=== PATIENT | male | born 1985 | race Caucasian/White ===

== ENCOUNTER 2017-05-18 13:34 | Inpatient (IN) | payer MEDICAID, OTHER ==
[~2017-05-18] VITALS: Ht 167.6 cm; Wt 73.5 kg
[2017-05-18 14:36] VITALS: BP 142/92; PULSE 109; RESP 16; TEMP 98.1; O2SAT 100
[2017-05-18 14:38] VITALS: BP 142/92; PULSE 109; RESP 16; O2SAT 100
--- NOTE | 2017-05-18 14:45 | PD ---
HPI Chief Complaint: Psychiatric Symptoms Time Seen by Provider: 14:41 Travel History International Travel<30 days: No Contact w/Intl Traveler<30days: No Traveled to known affect area: No History of Present Illness HPI 32-year-old male presents to the ED under Nogueira act for psychiatric evaluation. According to the Nogueira act paper work the patient was attempting to stab himself with a marker. The patient also told the deputy that he wanted to be shocked by the police to end his life. Per the Nogueira act the patient stopped taking antidepressants. On presentation the patient denies SI or HI. He acknowledges that he did make these remarks but states that this was because he was stressed due to family interactions. He endorses previous psychiatric diagnoses of depression, anxiety, anger disorder. He states that he began seeing a new physician in [place] for treatment of [place] disease. He was prescribed new medications and stopped taking his previous medications without beginning the new ones. He denies somatic complaints. PFSH Past Medical History Anxiety: Yes Depression: Yes Neurologic: Yes (SANTOS'S DISEASE) Influenza Vaccination: No Social History Alcohol Use: No Tobacco Use: No Substance Use: No Allergies-Medications (Allergen,Severity, Reaction): Coded Allergies: No Known Allergies (Verified Allergy, Unknown, 05/18/17) Reported Meds & Prescriptions Reported Meds & Active Scripts Active Active Prescriptions or Reported Medications Unobtainable Review of Systems Except as stated in HPI: all other systems reviewed are Neg Physical Exam Narrative GENERAL: Well-nourished, well-developed white male in no acute distress. PSYCHIATRIC: No delusional thought processes. No hallucinations. Cooperative. Appropriately interactive. SKIN: Focused skin assessment warm/dry. HEAD: Normocephalic. EYES: No scleral icterus. No injection or drainage. NECK: Supple, trachea midline. No JVD or lymphadenopathy. CARDIOVASCULAR: Regular rate and rhythm without murmurs, gallops, or rubs. RESPIRATORY: Breath sounds clear and equal bilaterally. No accessory muscle use. GASTROINTESTINAL: Abdomen soft, non-tender, nondistended. Active bowel sounds. MUSCULOSKELETAL: No cyanosis, or edema. Left wrist is in a Velcro splint. Strong bath solution maker strength. Neurovascularly intact. BACK: Nontender without obvious deformity. No CVA tenderness. Data Data Last Documented VS Vital Signs Date Time Temp Pulse Resp B/P (MAP) Pulse Ox O2 Delivery O2 Flow Rate FiO2 10/1/17 16:51 101 16 117/64 (81) 98 Room Air 05/18/17 14:36 98.1 Orders Orders Complete Blood Count With Diff (05/18/17 14:42) Comprehensive Metabolic Panel (05/18/17 14:42) Psych Screen (05/18/17 14:42) Drug Screen, Random Urine (05/18/17 14:42) Alcohol (Ethanol) (05/18/17 14:42) Diet Regular Basic (05/18/17 Dinner) Labs Laboratory Tests Test 05/18/17 14:48 05/18/17 15:32 White Blood Count 7.0 TH/MM3 Red Blood Count 4.68 MIL/MM3 Hemoglobin 14.1 GM/DL Hematocrit 41.8 % Mean Corpuscular Volume 89.3 FL Mean Corpuscular Hemoglobin 30.2 PG Mean Corpuscular Hemoglobin Concent 33.8 % Red Cell Distribution Width 13.4 % Platelet Count 244 TH/MM3 Mean Platelet Volume 8.5 FL Neutrophils (%) (Auto) 82.7 % Lymphocytes (%) (Auto) 9.7 % Monocytes (%) (Auto) 4.4 % Eosinophils (%) (Auto) 2.7 % Basophils (%) (Auto) 0.5 % Neutrophils # (Auto) 5.8 TH/MM3 Lymphocytes # (Auto) 0.7 TH/MM3 Monocytes # (Auto) 0.3 TH/MM3 Eosinophils # (Auto) 0.2 TH/MM3 Basophils # (Auto) 0.0 TH/MM3 CBC Comment DIFF FINAL Differential Comment Blood Urea Nitrogen 11 MG/DL Creatinine 0.97 MG/DL Random Glucose 109 MG/DL Total Protein 8.2 GM/DL Albumin 4.1 GM/DL Calcium Level 8.9 MG/DL Alkaline Phosphatase 92 U/L Aspartate Amino Transf (AST/SGOT) 20 U/L Alanine Aminotransferase (ALT/SGPT) 25 U/L Total Bilirubin 0.6 MG/DL Sodium Level 139 MEQ/L Potassium Level 3.7 MEQ/L Chloride Level 104 MEQ/L Carbon Dioxide Level 29.5 MEQ/L Anion Gap 6 MEQ/L Estimat Glomerular Filtration Rate 89 ML/MIN Ethyl Alcohol Level LESS THAN 3 MG/DL Urine Opiates Screen NEG Urine Barbiturates Screen NEG Urine Amphetamines Screen NEG Urine Benzodiazepines Screen NEG Urine Cocaine Screen NEG Urine Cannabinoids Screen NEG MDM Medical Decision Making Medical Screen Exam Complete: Yes Emergency Medical Condition: Yes Differential Diagnosis Adjustment disorder versus anxiety versus bipolar versus depression versus dementia versus electrolyte disorder versus malingering versus mood disorder versus noncompliance versus ODD versus psychosis versus PTSD versus schizophrenia versus schizoaffective disorder versus substance-induced mood disorder versus other Narrative Course 32-year-old male presents to the ED under Nogue[place] act for psychiatric evaluation. According to the N[place]ira act paper work the patient was attempting to stab himself with a marker. The patient also told the deputy that he wanted to be shocked by the police to end his life. Per the [place] act the patient stopped taking antidepressants. On presentation the patient denies SI or HI. He endorses previous psychiatric diagnoses of depression, anxiety, anger disorder. He states that he began seeing a new physician in [place] for treatment of Santos disease. He was prescribed new medications and stopped taking his previous medications without beginning the new ones. He denies somatic complaints. Vitals reviewed. Physical exam reveals a pleasant, cooperative white male in no acute distress. The left forearm is in a removable Velcro splint. Patient has strong bath solution maker strength and is neurovascularly intact. Chest CTAB, abdomen soft nontender. No lower extremity edema. No concerning abnormalities of CBC, CMP, tox screen. EtOH less than 3. The patient is medically clear for psychiatric evaluation. Awaiting psychiatric recommendations. Diagnosis Primary Impression: Medical clearance for psychiatric admission Scripts Unable to Obtain Active Prescriptions or Reported Meds Janet Mayberry May 18, 2017 14:45
[2017-05-18 14:59] LABS: AUTOMATED NEUTROPHIL # 5.8 TH/MM3 (1.8-7.7); BASOPHIL % 0.5 % (0.0-2.0); EOSINOPHIL # 0.2 TH/MM3 (0-0.4); EOSINOPHIL % 2.7 % (0.0-4.0); HEMATOCRIT 41.8 % (39.0-51.0); HEMO FLAGS DIFF FINAL; LYMPH % 9.7 % (9.0-44.0); LYMPHOCYTE # 0.7 TH/MM3 (1.0-4.8); MEAN CELL VOLUME 89.3 FL (80.0-100.0); MEAN CORPUSCULAR HEMOGLOBIN 30.2 PG (27.0-34.0); MEAN CORPUSCULAR HGB CONC 33.8 % (32.0-36.0); MONO % 4.4 % (0.0-8.0); NEUT % 82.7 % (16.0-70.0); PLATELET COUNT 244 TH/MM3 (150-450); RED BLOOD COUNT 4.68 MIL/MM3 (4.50-5.90); RED CELL DISTRIBUTION WIDTH 13.4 % (11.6-17.2)
[2017-05-18 15:15] LABS: ALT (GPT) 25 U/L (12-78); ANION GAP 6 MEQ/L (5-15); AST (GOT) 20 U/L (15-37); BICARBONATE 29.5 MEQ/L (21.0-32.0); BLOOD UREA NITROGEN 11 MG/DL (7-18); CHLORIDE 104 MEQ/L (98-107); GLOMERULAR FILTRATION RATE 89 ML/MIN (>89); POTASSIUM 3.7 MEQ/L (3.5-5.1); SODIUM (NA) 139 MEQ/L (136-145)
[2017-05-18 15:16] LABS: ALCOHOL LESS THAN 3 MG/DL (0-5)
[2017-05-18 15:17] LABS: ALKALINE PHOSPHATASE 92 U/L (45-117); TOTAL BILIRUBIN ADULT 0.6 MG/DL (0.2-1.0)
[2017-05-18 16:51] VITALS: BP 117/64; PULSE 101; RESP 16; O2SAT 98
[2017-05-18] MEDS ORDERED: CARB200T PO (17:34)
[2017-05-18] MEDS ORDERED: RISP0.5T2 PO (17:34)
[2017-05-18] MEDS ORDERED: BUPR75TA PO (17:34)
[2017-05-18 20:09] VITALS: BP 141/87; PULSE 86; RESP 20; O2SAT 98
[2017-05-18 23:55] VITALS: BP 114/77; PULSE 89; RESP 16; TEMP 96.5; O2SAT 100
[2017-05-19] MEDS ORDERED: MAGNESIUM HYDROXIDE SUSP 30 ML CUP PO PRN ×2 (03:00→12:45)
[2017-05-19] MEDS ORDERED: LORazepam 1 MG TAB PO PRN (03:00)
[2017-05-19] MEDS ORDERED: diphenhydrAMINE HCL 50 MG/ML VIAL IM PRN (03:00)
[2017-05-19] MEDS ORDERED: diphenhydrAMINE HCL 50 MG CAP PO PRN (03:00)
[2017-05-19] MEDS ORDERED: LORazepam 2 MG/ML VIAL IM PRN (03:00)
[2017-05-19] MEDS ORDERED: traZODone HCL 50 MG TAB PO PRN (03:00)
[2017-05-19] MEDS ORDERED: ALUMINUM/MAGNESIUM/SIMETH 30 ML CUP PO PRN ×2 (03:00→12:45)
[2017-05-19] MEDS ORDERED: ACETAMINOPHEN 325 MG TAB PO PRN ×2 (03:00→12:45)
[2017-05-19 06:37] VITALS: BP 114/66; PULSE 79; RESP 16; TEMP 96.5; O2SAT 97
[2017-05-19 11:20] LABS: ANION GAP 5 MEQ/L (5-15); BICARBONATE 33.3 MEQ/L (21.0-32.0); BLOOD UREA NITROGEN 10 MG/DL (7-18); CHLORIDE 104 MEQ/L (98-107); GLOMERULAR FILTRATION RATE 92 ML/MIN (>89); POTASSIUM 3.6 MEQ/L (3.5-5.1); SODIUM (NA) 142 MEQ/L (136-145)
[2017-05-19 11:24] LABS: HDL CHOLESTEROL 58.3 MG/DL (40.0-60.0); LDL CHOLESTEROL 60 MG/DL (0-99)
--- NOTE | 2017-05-19 12:58 | HHI.HP ---
Provisional Diagnosis Admission Date May 18, 2017 at 22:50 [place]. 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 Express and informed consent means consent voluntarily given in writing, by a competent person, after sufficient explanation and disclosure of the subject matter involved to enable the person to make a knowing and willful decision without any element of force, fraud, deceit, duress, or other form of constraint or coercion. This person is 18 years of age or older, is not now known to be incompetent to consent to treatment with a guardian advocate, and does not have a health care surrogate or proxy currently making medical treatment decisions. I have found this person to be one of the following: [xx] Competent to provide express and informed consent, as defined above, for voluntary admission to this facility and is competent to provide express and informed consent for treatment. He/she has the consistent capacity to make well reasoned, willful, and knowing decisions concerning his or her medical or mental health treatment. The person fully and consistently understands the purpose of the admission for examination/placement and is fully capable of personally exercising all rights assured [place] Incompetent to provide express and informed consent to voluntary admission, and this is incompetent to provide express and informed consent to treatment. The person must be transferred to involuntary status and a petition for a guardian advocate filed with the Circuit Court. [] Refusing to provide express and informed consent to voluntary admission but is competent to provide express and informed consent for treatment. The person must be discharged or transferred to involuntary status. Form shall be completed within 24 hours of a person's arrival at the receiving facility and filed in the clinical record of each person: 1. Admitted on a voluntary basis 2. Permitted to provide express and informed consent to his/her own treatment 3. Allowed to transfer from involuntary to voluntary status 4. Prior to permitting a person to consent to his or her own treatment after having been previously found incompetent to consent to treatment. History of Present Illness Capacity: Has Capacity HPI Patient is a 32 a white male diagnosed [place]'s chorea comes in initially under N[place]ira act after attempting to harm himself with a magic marker. Patient was allowed to sign voluntary per order of Dr. Dahl. Patient seen and screened in the ED urine toxicology negative blood alcohol level negative. Patient admitted to the 2600 unit. Patient seen by me today acknowledging the Santos's chorea. Acknowledging stress under his living situation. He lives with his sister who was diagnosed [place]'s chorea and 2 nieces 10 years older than 11 years old. It appears these to children are somewhat stressful for this patient. Is showing some of cultivate with coping with their energy intrusiveness immaturity and adolescents. He states he had a "meltdown". He now denies suicidality homicidality voices or visions. He denies any alcohol or drug use related to this. He does state there is a familial history of [place]'s chorea. His mother of the disease. However he also has a very supportive father and stepmother. He is planning on moving in with them as soon as she is discharged. Patient does see a neurologist. Was placed on Lexapro for a period of time. He did note some improvement in his mood but there is also some sedation thus he unilaterally stopped the medication leading to recurrence of his depressive symptoms. Including sad mood decreased energy decreased concentration and vague suicidal ideation, increased irritability and decreased coping. He has talked to his [place]'s physician is also ordered him to be placed on Tegretol Wellbutrin and Respinol the patient does have a prescription for Lexapro at home also. He had been placed on 20 mg daily per his history.. However the present time the patient wishes to have a trial of the 3 new medications. This is okay with me. Patient also has a history of suicidal ideation as a teenager when he became aware of his sisters diagnosis and subsequently his diagnosis of [place]'s. Patient denies any mental health history and family except Tameka sister. Denies any addictions in the family. Denies any physical and/or sexual abuse. He has graduated high school. Has had some employment in the past those been restricted by the manifestations of his disease. Mid event at the present time patient no longer meets criteria for inpatient psychiatric hospitalization thus will be discharged today he has [employer] at home fall through the medications thus to be no Rx by me. Will refer him through [facility] outpatient psychiatric services refer back to his Santos's physician. Also refer back to [place] support groups Review of Systems Except as stated in HPI: all other systems reviewed are Neg Past Psych History Psychological trauma history Denies Violence risk - others (6 mos) Denies Violence risk - self (6 mos) Low Substance Abuse History Drugs/Alcohol past 12 months Denies though states he has misuse alcohol number of years in the past Past Family Social History Coded Allergies: No Known Allergies (Verified Allergy, Unknown, 05/18/17) Reported Medications Carbamazepine (Carbamazepine) 200 Mg Tab, 200 MG PO BID, #60 TAB 0 Refills 05/18/17 Bupropion HCl (Bupropion HCl) 75 Mg Tab, 75 MG PO DAILY for Control Depression, TAB 0 Refills 05/18/17 Risperidone (Risperidone) 0.5 Mg Tab, 0.5 MG PO Q12HR, #60 TAB 0 Refills 05/18/17 Current Medications Medications (Trade) Dose Ordered Sig/Gina Route Start Time Stop Time Status Last Admin (Ativan) 1 mg Q6H PRN PO 05/19/17 03:00 (Ativan Inj) 1 mg Q6H PRN IM 05/19/17 03:00 (Benadryl) 50 mg Q6H PRN PO 05/19/17 03:00 (Benadryl Inj) 50 mg Q6H PRN IM 05/19/17 03:00 (Desyrel) 50 mg HS PRN PO 05/19/17 03:00 (Tylenol) 650 mg Q4H PRN PO 05/19/17 03:00 (Milk Of Magnesia Liq) 30 ml DAILY PRN PO 05/19/17 03:00 (Mag-Al Plus Susp Liq) 30 ml Q6H PRN PO 05/19/17 03:00 Family History Patient's sister history of depression Social History Patient will be living with his parents Patient's Strengths (min. 2) Patient verbal [facility] calm and cooperative Physical Exam Patient seen screened in ED exam reviewed and agreed with patient seen sitting in his bed in his room with nurse Gonzáles. Patient is no acute distress, patient no respiratory distress. No complaints of abdominal pain. No obvious motor movements noted patient walking without difficulty Vital Signs Vital Signs Date Time Temp Pulse Resp B/P (MAP) Pulse Ox O2 Delivery O2 Flow Rate FiO2 05/19/17 06:37 96.5 79 16 114/66 (82) 97 05/18/17 20:09 Room Air Lab Results Test 05/18/17 14:48 05/18/17 15:32 05/19/17 10:18 White Blood Count 7.0 TH/MM3 Red Blood Count 4.68 MIL/MM3 Hemoglobin 14.1 GM/DL Hematocrit 41.8 % Mean Corpuscular Volume 89.3 FL Mean Corpuscular Hemoglobin 30.2 PG Mean Corpuscular Hemoglobin Concent 33.8 % Red Cell Distribution Width 13.4 % Platelet Count 244 TH/MM3 Mean Platelet Volume 8.5 FL Neutrophils (%) (Auto) 82.7 % Lymphocytes (%) (Auto) 9.7 % Monocytes (%) (Auto) 4.4 % Eosinophils (%) (Auto) 2.7 % Basophils (%) (Auto) 0.5 % Neutrophils # (Auto) 5.8 TH/MM3 Lymphocytes # (Auto) 0.7 TH/MM3 Monocytes # (Auto) 0.3 TH/MM3 Eosinophils # (Auto) 0.2 TH/MM3 Basophils # (Auto) 0.0 TH/MM3 CBC Comment DIFF FINAL Differential Comment Blood Urea Nitrogen 11 MG/DL 10 MG/DL Creatinine 0.97 MG/DL 0.94 MG/DL Random Glucose 109 MG/DL 72 MG/DL Total Protein 8.2 GM/DL Albumin 4.1 GM/DL Calcium Level 8.9 MG/DL 9.2 MG/DL Alkaline Phosphatase 92 U/L Aspartate Amino Transf (AST/SGOT) 20 U/L Alanine Aminotransferase (ALT/SGPT) 25 U/L Total Bilirubin 0.6 MG/DL Sodium Level 139 MEQ/L 142 MEQ/L Potassium Level 3.7 MEQ/L 3.6 MEQ/L Chloride Level 104 MEQ/L 104 MEQ/L Carbon Dioxide Level 29.5 MEQ/L 33.3 MEQ/L Anion Gap 6 MEQ/L 5 MEQ/L Estimat Glomerular Filtration Rate 89 ML/MIN 92 ML/MIN Ethyl Alcohol Level LESS THAN 3 MG/DL Urine Opiates Screen NEG Urine Barbiturates Screen NEG Urine Amphetamines Screen NEG Urine Benzodiazepines Screen NEG Urine Cocaine Screen NEG Urine Cannabinoids Screen NEG Triglycerides Level 66 MG/DL Cholesterol Level 131 MG/DL LDL Cholesterol 60 MG/DL HDL Cholesterol 58.3 MG/DL Cholesterol/HDL Ratio 2.24 RATIO Mental Status Examination Alert oriented thin slender white male calm cooperative with fair eye contact Appearance Clean neatly Speech: Unremarkable Orientation: x3 Memory: Unremarkable Thought Process: Logical, Organized Thought Content: Unremarkable Language Good Fund of Knowledge Good Hallucination Type: None Attention and Concentration: Good Suicidal Ideation: Yes (denies suicidality at this time) Previous Suicide Attempts: Yes Homicidal Ideation: No Previous Homicide Attempts: No Insight: Fair Judgment: Poor Affect: Other (slight increase range and intensity) Mood: Sad Motor Activity: Abnormal gait-specify (very slightly secondary to [place]'s) Assessment & Plan Problem List: (1) Santos's disease ICD Codes: G10 - [place]'s disease (2) Major depressive disorder, recurrent episode, moderate ICD Codes: F33.1 - Major depressive disorder, recurrent, moderate Assessment & Plan Estimated LOS: days patient does not meet Nogueira criteria will lift Nogueira act allow patient to be discharged to his family. He may continue medications as prescribed by his [place]'s physician including Tegretol Wellbutrin and Respinol. Follow-through with [facility] medication management, also strongly referral to support group through [place]'s chorea association Discharge Planning See above Ray Talamantes MD May 19, 2017 12:58
--- NOTE | 2017-05-19 13:03 | HHI.DS ---
Psychiatry Discharge Summary Inpatient Psychiatric care?: Yes Advance Directive: No Reason Not Provided: NONE Mental Health AdvanceDirective: No Health Care Proxy: No Admission Admission Date May 18, 2017 at 22:50 Admission Diagnosis: (1) Santos's disease ICD Code: G10 - Santos's disease (2) Major depressive disorder, recurrent episode, moderate ICD Code: F33.1 - Major depressive disorder, recurrent, moderate Brief History Patient is a 32 a white male diagnosed [place]'s chorea comes in initially under [place] act after attempting to harm himself with a magic marker. Patient was allowed to sign voluntary per order of Dr. Dahl. Patient seen and screened in the ED urine toxicology negative blood alcohol level negative. Patient admitted to the 2600 unit. Patient seen by me today acknowledging the Santos's chorea. Acknowledging stress under his living situation. He lives with his sister who was diagnosed [place]'s chorea and 2 nieces 10 years older than 13 years old. It appears these to children are somewhat stressful for this patient. Is showing some of cultivate with coping with their energy intrusiveness immaturity and adolescents. He states he had a "meltdown". He now denies suicidality homicidality voices or visions. He denies any alcohol or drug use related to this. He does state there is a familial history of Santos's chorea. His mother of the disease. However he also has a very supportive father and stepmother. He is planning on moving in with them as soon as she is discharged. Patient does see a neurologist. Was placed on Lexapro for a period of time. He did note some improvement in his mood but there is also some sedation thus he unilaterally stopped the medication leading to recurrence of his depressive symptoms. Including sad mood decreased energy decreased concentration and vague suicidal ideation, increased irritability and decreased coping. He has talked to his [place]'s physician is also ordered him to be placed on Tegretol Wellbutrin and Respinol the patient does have a prescription for Lexapro at home also. He had been placed on 20 mg daily per his history.. However the present time the patient wishes to have a trial of the 3 new medications. This is okay with me. Patient also has a history of suicidal ideation as a teenager when he became aware of his sisters diagnosis and subsequently his diagnosis of [place]'s. Patient denies any mental health history and family except Tameka sister. Denies any addictions in the family. Denies any physical and/or sexual abuse. He has graduated high school. Has had some employment in the past those been restricted by the manifestations of his disease. Mid event at the present time patient no longer meets criteria for inpatient psychiatric hospitalization thus will be discharged today he has [employer] at home fall through the medications thus to be no Rx by me. Will refer him through [facility] outpatient psychiatric services refer back to his [place]'s physician. Also refer back to [place] support groups Tobacco Use In Past 30 Days: No Tobacco Past 30 Days Alcohol Use: Never Hospital Course Please see brief history dictated abov patient does not meet criteria for inpatient psychiatric hospitalization. Patient be discharged. To continue medication as prescribed by Ms. Santos's physician. Also referred to [facility] for follow-up Results Blood Pressure 114 / 66 Vital Signs Date Time Temp Pulse Resp B/P (MAP) Pulse Ox O2 Delivery O2 Flow Rate FiO2 05/19/17 06:37 96.5 79 16 114/66 (82) 97 05/18/17 20:09 Room Air Laboratory Tests Test 05/18/17 14:48 05/18/17 15:32 05/19/17 10:18 Neutrophils (%) (Auto) 82.7 % (16.0-70.0) Lymphocytes # (Auto) 0.7 TH/MM3 (1.0-4.8) Random Glucose 109 MG/DL (74-106) 72 MG/DL (74-106) Carbon Dioxide Level 33.3 MEQ/L (21.0-32.0) Laboratory Results Test 05/19/17 10:18 Cholesterol Level 131 MG/DL (120-200) HDL Cholesterol 58.3 MG/DL (40.0-60.0) LDL Cholesterol 60 MG/DL (0-99) Triglycerides Level 66 MG/DL (42-150) Summary of Procedures None done Pending results at discharge: No Medications # of Antipsychotic meds at D/C: 0 Approp Antipsych med options 1 - Minimum of three failed multiple trials of monotherapy. 2 - Documented plan to taper to monotherapy due to previous use of multiple meds OR cross-taper in progress at D/C. 3 - Documentation of augmentation of Clozapine. 4 - Justification other than those listed in allowable values 1-3, document here : Discharge Discharge Date: May 19, 2017 Discharge Diagnosis: (1) Major depressive disorder, recurrent episode, moderate Diagnosis: Principal ICD Code: F33.1 - Major depressive disorder, recurrent, moderate (2) [place]'s disease Diagnosis: Secondary ICD Code: G10 - [place]'s disease Mental Status Exam at Disch Alert oriented thin slender white male appears stated age calm cooperative. He is normoactive. Mood is mildly dysphoric with slight increase range and intensity of affect. Speech rate and rhythm within normal limits though no formal thought disorders. No other treatment visual hallucinations. No delusions. Insight and judgment is fair. Cognition grossly intact Pt Condition on Discharge: Stable Discharge Disposition: Discharge Home Discharge Instructions Diet Instructions: As Tolerated, No Restrictions Activities you can perform: Regular-No Restrictions Scheduled Appointment: [facility] Discharge Time > 30 minutes Discharge/Advance Care Plan Health Problems: (1) [place]'s disease (2) Major depressive disorder, recurrent episode, moderate Goals to promote your health * To prevent worsening of your condition and complications * To maintain your health at the optimal level Directions to meet your goals Take your medications as prescribed Follow your dietary instruction Follow activity as directed Keep your appointments as scheduled Take your immunizations and boosters as scheduled If your symptoms worsen call your PCP, if no PCP go to Urgent Care Center or Emergency Room For 24/ questions related to your inpatient stay or results of tests pending at discharge, please contact Dr. Ray Talamantes at Smoking is Dangerous to Your Health. Avoid second hand smoking Ray Talamantes MD May 19, 2017 13:03
[2017-05-19 17:03] LABS: HEMOGLOBIN A1a 0.9 %; HEMOGLOBIN A1b 0.8 %; HEMOGLOBIN Ao 86.6 %; HEMOGLOBIN F 0.8 %; HEMOGLOBIN LA1C 1.8 %; HEMOGLOBIN P3 3.4 %
== END 2017-05-19 15:15 | disposition home or self-care (01) | DRG 885 ==
LOC: NEPD 13:34 → NEDA 22:50 → H260 23:55
PROVIDERS: ADMIT Psychiatry & Neurology Psychiatry; ATTEND Psychiatry & Neurology Psychiatry
DX: F33.1 Major depressive disorder, recurrent, moderate (principal); G10 Huntington's disease; Z82.0 Family history of epilepsy and other diseases of the nervous system
CPT/HCPCS: 80048; 80053; 80061; 80307; 83036; 85025